=== PATIENT | female | born 1995 | race Caucasian/White ===

== ENCOUNTER 2018-04-09 12:23 | Observation (INO) | payer OTHER ==
[2018-04-09] MEDS ORDERED: PNV1TABL50 PO (13:17)
[2018-04-09] MEDS ORDERED: CALC-1042 PO (13:17)
[2018-04-09] MEDS ORDERED: FERR325T6 PO (13:17)
== END 2018-04-09 14:17 | disposition home or self-care (01) ==
LOC: L&D 12:23
PROVIDERS: ADMIT Obstetrics & Gynecology; ATTEND Obstetrics & Gynecology
DX: O36.8130 Decreased fetal movements, third trimester, not applicable or unspecified (principal); Z3A.33 33 weeks gestation of pregnancy
CPT/HCPCS: 99281; G0378